=== PATIENT | female | born 1965 | race Caucasian/White ===

== ENCOUNTER 2022-07-16 23:53 | Emergency (ER) | payer BC, SELFPAY ==
[2022-07-17] VITALS (22 sets, daily range): BP systolic 65–150; BP diastolic 49–100; PULSE 71–98; RESP 12–16; TEMP 36.2; O2SAT 86–98
--- NOTE | 2022-07-17 00:16 | CRLHL7_ITS ---
For Patients: As a result of the Century Cures Act, medical imaging exams and procedure reports are released immediately into your electronic medical record. You may view this report before your referring provider. If you have questions, please contact your health care provider. INDICATION: Severe abdominal pain. History of colectomy. TECHNIQUE: CT abdomen and pelvis acquired with 79 cc Isovue 370 IV contrast. COMPARISON: CT abdomen 03/16/2020. FINDINGS: Lower chest: Mild bilateral lower lobe atelectasis. Liver: Unremarkable. Normal in size and attenuation. No suspicious masses. Gallbladder and bile ducts: Cholelithiasis. No mural thickening. Pancreas: Unremarkable. No mass or inflammation. Spleen: Unremarkable. Normal in size. No masses. Adrenal glands: Unremarkable. No nodules. Kidneys: Partial right nephrectomy. Normal left kidney. No stone, suspicious mass, or hydronephrosis. GI tract: Postsurgical changes of total colectomy with right lower quadrant ostomy. Multiple dilated loops of fluid-filled small bowel throughout the abdomen with a transition point about surgical clips and chain suture in the lower pelvis (series 4, image 62). Vasculature: Abdominal aorta is normal in caliber. Mesenteric arteries are patent. Lymph nodes: No lymphadenopathy. Peritoneum/Abdominal Wall: No free air or significant free fluid. Pelvis: Unremarkable. Bones: Unremarkable for age. IMPRESSION: Small-bowel obstruction with transition point in the lower pelvis adjacent to chain suture and surgical clips from prior total colectomy. Partial right nephrectomy. Cholelithiasis without evidence of cholecystitis. Please note that all CT scans at this facility use dose modulation, iterative reconstruction, and/or weight-based dosing when appropriate to reduce radiation dose to as low as reasonably achievable. Dictated by Efrem Mcgarry MD @ 07/17/2022 1:58:10 AM (Electronically Signed)
[2022-07-17] MEDS: ONDANSETRON 2 MG/ML inj 4 MG IVP (00:25)
[2022-07-17] MEDS: fentaNYL 100 MCG/2 ML inj 50 MCG IVP (00:25)
[2022-07-17] MEDS: 0.9 % SODIUM CHLORIDE 1000 ml 1,000 ML IV ×2 (00:26→00:54)
[2022-07-17 00:35] LABS: Basophils Percent Auto 0.4 % (0.0-3.0); Eosinophils Percent Auto 0.6 % (0.0-7.0); Hematocrit 44.4 % (33.0-51.0); Hemoglobin* 14.4 gm/dL (12.0-16.0); Immature Granulocytes Pct Auto 0.2 %; Lymphocytes Percent Auto 16.2 % (20-44); Mean Corpuscular HGB Conc 32 gm/dL (32-36); Mean Corpuscular Hemoglobin 29 pg (26-34); Mean Corpuscular Volume 89 fL (80-100); Monocytes Percent Auto 7.1 % (0.0-11.0); Neutrophils Percent Auto 75.5 % (42.0-72.0); Platelet Count* 282 K/uL (140-440); RDW Coefficient of Variation % 13.4 % (11.5-15.5); Red Blood Count 5.01 m/uL (4.00-5.20); White Blood Count* 13.98 K/uL (4.50-11.00)
[2022-07-17 00:36] LABS: Lactate Sepsis w/Reflex* 1.5 mmol/L (0.5-1.9); Slide Review Reflex No
[2022-07-17 00:43] LABS: Albumin* 4.7 g/dL (3.3-5.0); Chloride* 107 mmol/L (96-114)
[2022-07-17 00:44] LABS: Potassium* 3.8 mmol/L (3.6-5.1); Sodium* 139 mmol/L (135-149)
[2022-07-17 00:46] LABS: Creatinine* 0.9 mg/dL (0.5-1.5); Estimated Glomerular Filt Rate 75 ml/min
[2022-07-17 00:47] LABS: Alanine Aminotransferase* 31 U/L (4-35); Alkaline Phosphatase* 111 U/L (40-150); Aspartate Amino Transferase* 32 U/L (12-35); Bilirubin Direct* 0.1 mg/dL (0.0-0.5); Blood Urea Nitrogen* 24 mg/dL (7-30); Calcium* 9.6 mg/dL (8.4-10.6); Carbon Dioxide* 20 mmol/L (20-32); Glucose* 137 mg/dL (60-115); Lipase* 129 U/L (23-300)
--- NOTE | 2022-07-17 00:50 | ED.ABDPAIN ---
HPI - Abdominal Pain General Chief Complaint: Abdominal Pain Stated Complaint: Abdominal Pain Time Seen by Provider: 07/17/22 00:16 History of Present Illness HPI narrative: 56-year-old woman presenting to the emergency department accompanied by her with complaint of sudden onset of abdominal pain about 2 hours prior to arrival. Has a history of full colectomy for Crohn's; a J-pouch apparently was attempted but this failed after adhering to the pelvis. She has had an ileostomy known place for about 20 years following the surgery. They have had fiber 6 episodes of bowel obstruction to some degree over the years. Did have some bowel output last about 5 hours ago. It was a small amount. Has not had any fever. She did vomit a couple of times. Arrives in significant distress. Related Data Home Medications Medication Instructions Recorded Confirmed fluticasone propionate 50 intranasal 07/17/22 mcg/actuation nasal spray,suspension levothyroxine 75 mcg tablet mcg 07/17/22 Allergies Allergy/AdvReac Type Severity Reaction Status Date / Time No Known Drug Allergies Allergy Verified 07/17/22 00:21 Review of Systems Status of ROS Reports: 10 or more systems reviewed and unremarkable except as noted in History and below [facility] Social History Smoking Status: Unknown if ever smoked Exam Narrative: Exam Narrative: Diaphoretic and pale initial exam. Mouth is sticky. Abdomen diffusely tense and tender. Bowel sounds are present. Small output in the stoma bag. Initial blood pressure is noted to be rather low. Rebounds though fairly quickly. Skin is without evidence of rash. Lungs appear to be clear though she is splinting a little bit in pain. Cardiovascular with regular rate and rhythm. Bringing her knees up somewhat in apparent discomfort. No peripheral edema. Const: Vital Signs, click to edit/add: Vital Signs - 24 hr 07/17/22 00:18 07/17/22 00:30 07/17/22 00:30 Temperature 97.1 F L Pulse Rate Pulse Rate [Left P ulse Oximeter] 71 81 Respiratory Rate 16 12 Blood Pressure Blood Pressure [Le ft Upper Arm] 65/49 L 132/81 Pulse Oximetry 98 86 L 86 L Oxygen Delivery Me thod Room Air Room Air Room Air Oxygen Flow Rate 2 07/17/22 01:00 07/17/22 02:11 07/17/22 02:15 Temperature Pulse Rate 97 89 Pulse Rate [Left P ulse Oximeter] 75 Respiratory Rate 14 Blood Pressure Blood Pressure [Le ft Upper Arm] 132/81 Pulse Oximetry 95 93 90 Oxygen Delivery Me thod Nasal Cannula Nasal Cannula Oxygen Flow Rate 2 2 07/17/22 02:30 07/17/22 02:31 07/17/22 02:45 Temperature Pulse Rate 87 85 85 Pulse Rate [Left P ulse Oximeter] Respiratory Rate Blood Pressure 126/90 H Blood Pressure [Le ft Upper Arm] Pulse Oximetry 96 96 97 Oxygen Delivery Me thod Room Air Oxygen Flow Rate 07/17/22 03:00 07/17/22 03:02 07/17/22 03:15 Temperature Pulse Rate 91 89 90 Pulse Rate [Left P ulse Oximeter] Respiratory Rate Blood Pressure 137/100 H Blood Pressure [Le ft Upper Arm] Pulse Oximetry 95 95 96 Oxygen Delivery Me thod Oxygen Flow Rate 07/17/22 01:27 07/17/22 03:30 07/17/22 03:31 Temperature Pulse Rate 89 90 Pulse Rate [Left P ulse Oximeter] Respiratory Rate Blood Pressure 150/92 H Blood Pressure [Le ft Upper Arm] Pulse Oximetry 96 92 90 Oxygen Delivery Me thod Room Air Oxygen Flow Rate 07/17/22 03:45 07/17/22 04:00 07/17/22 04:01 Temperature Pulse Rate 98 86 Pulse Rate [Left P ulse Oximeter] Respiratory Rate Blood Pressure 138/94 H Blood Pressure [Le ft Upper Arm] Pulse Oximetry 96 97 Oxygen Delivery Me thod Oxygen Flow Rate 07/17/22 04:15 07/17/22 04:30 07/17/22 04:34 Temperature Pulse Rate 84 85 82 Pulse Rate [Left P ulse Oximeter] Respiratory Rate Blood Pressure Blood Pressure [Le ft Upper Arm] Pulse Oximetry 90 90 89 Oxygen Delivery Me thod Nasal Cannula Oxygen Flow Rate 1 07/17/22 04:45 07/17/22 05:30 Temperature Pulse Rate 80 85 Pulse Rate [Left P ulse Oximeter] Respiratory Rate Blood Pressure Blood Pressure [Le ft Upper Arm] Pulse Oximetry 97 95 Oxygen Delivery Me thod Room Air Oxygen Flow Rate Documenting provider has reviewed patient's vital signs: yes Course Vital Signs Vital signs: Initial Vital Signs Temperature 97.1 F L 07/17/22 00:18 Temperature Source Temporal Artery Scan 07/17/22 00:18 Pulse Rate 71 07/17/22 00:18 Respiratory Rate 16 07/17/22 00:18 Blood Pressure 65/49 L 07/17/22 00:18 Blood Pressure Mean 54 07/17/22 00:18 Blood Pressure Position Sitting 07/17/22 00:18 Pulse Oximetry 98 07/17/22 00:18 Oxygen Delivery Method 07/17/22 00:18 Vital Signs Temperature 97.1 F L 07/17/22 00:18 Pulse Rate 71 07/17/22 00:18 Respiratory Rate 16 07/17/22 00:18 Blood Pressure 65/49 L 07/17/22 00:18 Pulse Oximetry 98 07/17/22 00:18 Oxygen Delivery Method 07/17/22 00:18 Temperature 97.1 F L 07/17/22 00:18 Pulse Rate 85 07/17/22 05:30 Respiratory Rate 14 07/17/22 01:00 Blood Pressure 138/94 H 07/17/22 04:01 Pulse Oximetry 95 07/17/22 05:30 Oxygen Delivery Method 07/17/22 04:45 Oxygen Flow Rate 1 07/17/22 04:34 MDM - Abdominal Pain MDM Narrative Medical decision making narrative: Sepsis of initial concern. I would suspect small-bowel obstruction given history. Sounds as though there is rather small opening at prior anastomotic site and at stomal output that has cause trouble before. She has had ballooning procedure as well. Was initiated on fluid resuscitation. Vital stabilized. White count was mildly elevated. Some of this might be stress margination. Lactate reassuring. Did review CT imaging of abdomen and pelvis-IV contrast. Radiology over-read as below IMPRESSION: Small-bowel obstruction with transition point in the lower pelvis adjacent to chain suture and surgical clips from prior total colectomy. Partial right nephrectomy. Cholelithiasis without evidence of cholecystitis. Discussed these findings with our on-call surgeon who understandably was concerned about admitting to this facility without next levels of care available and potential complicated surgery if necessary. History for Ms. Sheffield is that tends to resolve with some bowel rest and fluids. Did require multiple doses of fentanyl and then Dilaudid. Following repeat consultation with our surgeon pain had markedly decreased, we monitored for a longer period of time, and had begun to have stool output again. She was no longer vomiting in the emergency department. Was requesting departure home. Urinalysis was concentrated and would seem to indicate presence of infection but without urinary tract symptoms I would wait for culture results and follow up with phone call for symptoms before treating. Medical Records Attestation: I reviewed the patient's medical records. Lab Data Attestation: I reviewed the patient's lab results. Labs: Lab Results 07/17/22 07/17/22 07/17/22 Range/Units 00:19 00:25 00:25 WBC 13.98 H (4.50-11.00) K/uL RBC 5.01 (4.00-5.20) m/uL Hgb 14.4 (12.0-16.0) gm/dL Hct 44.4 (33.0-51.0) % MCV 89 (80-100) fL MCH 29 (26-34) pg MCHC 32 (32-36) gm/dL RDW Coeff of Elvis 13.4 (11.5-15.5) % Plt Count 282 (140-440) K/uL Neut % (Auto) 75.5 H (42.0-72.0) % Lymph % (Auto) 16.2 L (20-44) % [place] % (Auto) 7.1 (0.0-11.0) % Eos % (Auto) 0.6 (0.0-7.0) % Baso % (Auto) 0.4 (0.0-3.0) % Neut # (Auto) 10.60 H (1.7-7.0) K/uL Lymph # (Auto) 2.30 (0.90-2.90) K/uL [place] # (Auto) 1.00 H (0.00-0.90) K/UL Eos # (Auto) 0.10 (0.00-0.50) K/uL Baso # (Auto) 0.10 (0.00-0.30) K/uL Sodium 139 (135-149) mmol/L Potassium 3.8 (3.6-5.1) mmol/L Chloride 107 (96-114) mmol/L Carbon Dioxide 20 (20-32) mmol/L BUN 24 (7-30) mg/dL Creatinine 0.9 (0.5-1.5) mg/dL Estimated GFR 75 ml/min Glucose 137 H (60-115) mg/dL Venous Lactic Acid (Serial Order) Calcium 9.6 (8.4-10.6) mg/dL Total Bilirubin 1.0 (0.1-1.5) mg/dL Direct Bilirubin 0.1 (0.0-0.5) mg/dL AST 32 (12-35) U/L ALT 31 (4-35) U/L Alkaline Phosphatase 111 (40-150) U/L C-Reactive Protein < 0.5 L (0.5-1.0) mg/dL Total Protein 8.0 (6.0-8.3) g/dL Albumin 4.7 (3.3-5.0) g/dL Lipase 129 (23-300) U/L Urine Color Yellow (Yellow) Urine Appearance Cloudy A (Clear) Urine pH 5.0 (5.0-8.5) Ur Specific [place] >= 1.030 (1.000-1.030) Urine Protein 3+ A (Negative) Urine Glucose (UA) Negative (Negative) Urine Ketones Negative (Negative) Urine Blood Trace-intact A (Negative) Urine Nitrite Negative (Negative) Urine Bilirubin Negative (Negative) Urine Urobilinogen 0.2 (0.2-1.0) Ur Leukocyte Esterase 1+ A (Negative) Urine RBC 5-10 A (0-2) Urine WBC 10-25 A (0-5) Ur Squamous Epith Cells Few (None-Few) Urine Bacteria Few A (None) SARS-CoV-2 (PCR) (Negative) 07/17/22 07/17/22 Range/Units 00:25 00:50 WBC (4.50-11.00) K/uL RBC (4.00-5.20) m/uL Hgb (12.0-16.0) gm/dL Hct (33.0-51.0) % MCV (80-100) fL MCH (26-34) pg MCHC (32-36) gm/dL RDW Coeff of Elvis (11.5-15.5) % Plt Count (140-440) K/uL Neut % (Auto) (42.0-72.0) % Lymph % (Auto) (20-44) % [place] % (Auto) (0.0-11.0) % Eos % (Auto) (0.0-7.0) % Baso % (Auto) (0.0-3.0) % Neut # (Auto) (1.7-7.0) K/uL Lymph # (Auto) (0.90-2.90) K/uL [place] # (Auto) (0.00-0.90) K/UL Eos # (Auto) (0.00-0.50) K/uL Baso # (Auto) (0.00-0.30) K/uL Sodium (135-149) mmol/L Potassium (3.6-5.1) mmol/L Chloride (96-114) mmol/L Carbon Dioxide (20-32) mmol/L BUN (7-30) mg/dL Creatinine (0.5-1.5) mg/dL Estimated GFR ml/min Glucose (60-115) mg/dL Venous Lactic Acid (Serial Order) Calcium (8.4-10.6) mg/dL Total Bilirubin (0.1-1.5) mg/dL Direct Bilirubin (0.0-0.5) mg/dL AST (12-35) U/L ALT (4-35) U/L Alkaline Phosphatase (40-150) U/L C-Reactive Protein (0.5-1.0) mg/dL Total Protein (6.0-8.3) g/dL Albumin (3.3-5.0) g/dL Lipase (23-300) U/L Urine Color (Yellow) Urine Appearance (Clear) Urine pH (5.0-8.5) Ur Specific [place] (1.000-1.030) Urine Protein (Negative) Urine Glucose (UA) (Negative) Urine Ketones (Negative) Urine Blood (Negative) Urine Nitrite (Negative) Urine Bilirubin (Negative) Urine Urobilinogen (0.2-1.0) Ur Leukocyte Esterase (Negative) Urine RBC (0-2) Urine WBC (0-5) Ur Squamous Epith Cells (None-Few) Urine Bacteria (None) SARS-CoV-2 (PCR) Negative SARS-CoV-2 (Negative) ECG Data Attestation: I personally reviewed and interpreted this ECG as follows: (Normal sinus rhythm. rate of 82. QTC of 497) Discharge Plan Discharge Clinical Impression: Small bowel obstruction, Abdominal pain, Dehydration Patient Disposition: Home w/ Parent or Adult Condition: Improved Additional Instructions: Focus on hydration. For today clear liquids. Diluted juices and soup broths; then over 36 hours advancing to thicker soups and smoothies. Rice. [place]. Sounds like it is time to follow-up with your surgeon and maybe block breaker operator. Return as needed. Cosmo and Gerri from [facility]. Prescriptions: No Action levothyroxine 75 mcg tablet Label Comments: TAKE 1 TABLET BY MOUTH ONCE DAILY. fluticasone propionate 50 mcg/actuation spray,suspension INTRANASAL Label Comments: INHALE 2 SPRAYS INTO AFFECTED NOSTRIL(S) ONCE DAILY. Follow Up/Referrals: Taylor Pal MD [Primary Care Provider] - Stand Alone Forms: [facility] Info Instructions
[2022-07-17] MEDS: fentaNYL 100 MCG/2 ML inj 25 MCG IVP (00:53)
[2022-07-17 00:56] LABS: C Reactive Protein* < 0.5 mg/dL (0.5-1.0)
[2022-07-17] MEDS: HYOSCYAMINE SULFATE 0.125 MG TAB 0.25 MG SUBLINGUAL (01:30)
[2022-07-17] MEDS: HYDROmorphone 0.5 mg/0.5 ml inj 1 MG IVP (02:10)
--- NOTE | 2022-07-17 03:30 | ED.NURSE ---
Last oral intake: 07/16/22 at 1300 - sandwich
--- NOTE | 2022-07-17 03:55 | ED.NURSE ---
Pt up to bathroom via w/c. Pt reports she passed large amount of watery stool for first time since here in ER. Pt stating pain is relieved, from 10/10 to 0/10. Pt also states she is finally able to rest. Pt's states that pt has had frequent similar episodes in past, and patient needs to get over the part where she can finally relax and then once she can go to the bathroom again, she has watery stools for three days and then she is back to normal. updated.
[2022-07-17 04:55] LABS: Appearance Urine Cloudy (Clear); Bilirubin Urine Negative (Negative); Color Urine Yellow (Yellow); Glucose Urine Negative (Negative)
[2022-07-17 04:56] LABS: Blood Urine Trace-intact (Negative); Ketones Urine Negative (Negative); Nitrite Urine Negative (Negative); Protein Urine 3+ (Negative); Specific Gravity Urine >= 1.030 (1.000-1.030); Urobilinogen Urine 0.2 (0.2-1.0)
[2022-07-17 04:57] LABS: Bacteria Urine Few; Leukocyte Esterase Urine 1+ (Negative); Squamous Epithelial Cell Urine Few (None-Few)
[2022-07-17 05:26] LABS: SARS PCR* Negative SARS-CoV-2 (Negative)
== END 2022-07-17 06:05 | disposition home or self-care (01) ==
PROVIDERS: Emergency Provider Family Medicine; PCP Family Medicine
DX: K56.690 Other partial intestinal obstruction (principal)
CPT/HCPCS: 36415; 74177; 80048; 80076; 81001; 83690; 85025; 86140; 87040; 87086; 87635; 96374; 96375; 96376; 99284; 99285; A9270; J1170; J2405; J3010; J7030; Q9967

== ENCOUNTER 2023-07-26 15:09 | Inpatient (IN) | payer BC, SELFPAY ==
[2023-07-26] VITALS (12 sets, daily range): BP systolic 81–119; BP diastolic 58–89; PULSE 71–93; RESP 16–18; TEMP 36.4–36.8; O2SAT 92–96; BMI 27.0
--- NOTE | 2023-07-26 15:41 | ED.GENADULT ---
HPI - General Adult General Date Seen: 07/26/23 Chief complaint: Diarrhea Stated complaint: Abdominal pain, low BP Time Seen by Provider: 07/26/23 15:29 History of Present Illness HPI narrative: 57-year-old female with a past medical history of Crohn's disease status post total colectomy with ileostomy done about 20 years ago. She follows with [facility] and has not had any active Crohn's for a while so she is not currently on any immunosuppressive medications. She has been sick for the past 2 days with a GI illness. She has had a bit of nausea but no vomiting. She has had profound watery output and diarrhea through her ileostomy. No blood or mucus. She notes that her son is home from college and he has been sick with a GI bug that her was also sick with a much more mild GI illness yesterday but he is no better. As is typically the case, she is affected by GI illnesses much more severely than her family members. No other recent antibiotics. No recent travel. No other suspicious food intake per She has not had any fever or chills. No chest pain or shortness of breath. She has been getting progressively weaker and run down because of a diarrhea and dehydration. She is developing cramps in her legs and has had difficulty walking. Her blood pressure is normally in the 130s systolic at home but today when she was measuring at it was 88/50. She is getting lightheaded from dehydration. She did take 1 Imodium this morning and has had somewhat less diarrhea output since then but still much more liquid output than normal. She has to be careful with Imodium because it has triggered obstructions for her in the past. Related Data Home Medications Medication Instructions Recorded Confirmed fluticasone propionate 50 intranasal 07/17/22 mcg/actuation nasal spray,suspension levothyroxine 75 mcg tablet mcg 07/17/22 gabapentin 300 mg capsule 300 mg PO DAILY 07/26/23 07/26/23 hydroxyzine HCl 25 mg tablet 25 mg PO Q6H PRN itch 07/26/23 07/26/23 Allergies Allergy/AdvReac Type Severity Reaction Status Date / Time No Known Drug Allergies Allergy Verified 07/17/22 00:21 PFSH PFSH Social History Smoking Status: Unknown if ever smoked How often do you have a drink containing alcohol: 2-3 times a week How many standard drinks containing alcohol do you have on a typical day: 1 or 2 How often do you have six or more drinks on one occasion: Never AUDIT-C Alcohol total score: 3 Non-prescribed substance use: denies use Exam Narrative: Exam Narrative: Constitutional: Appears well-developed and well-nourished. Alert. Conversant. Appears tired but overall not acutely toxic HENT: Head: Atraumatic. Nose: Nose normal. Mouth/Throat: Oral mucosa is clear dry and tongue is quite dry.. no trismus. Pharynx normal. Tonsils symmetric. No tonsillar enlargement, erythema, or exudate. Eyes: Conjunctivae normal. EOM normal. Pupils equal, round, and reactive to light. No scleral icterus. Neck: Normal range of motion. Neck supple. No tracheal deviation present. Cardiovascular: Normal rate, regular rhythm. No gallop. No friction rub. No murmur heard. Symmetric radial artery pulses Pulmonary/Chest: Effort normal. No stridor. No respiratory distress. No wheezes. No rales. No rhonchi . No tenderness. Abdominal: Soft. Bowel sounds normal. No distension. No mass. Mild diffuse tenderness. No rebound. No guarding. Overall, not peritoneal. Ostomy bag in right lower quadrant does have liquid stool in it. No solid stool. Musculoskeletal: RUE: Normal range of motion. No tenderness. No deformity LUE: Normal range of motion. No tenderness. No deformity RLE: Normal range of motion. No edema. No tenderness. No deformity LLE: Normal range of motion. No edema. No tenderness. No deformity Neurological: Alert and oriented to person, place, and time. Normal strength. CN II-VII intact. No sensory deficit. GCS eye subscore is 4. GCS verbal subscore is 5. GCS motor subscore is 6. Normal coordination Skin: Skin is warm and dry. No rash noted. No pallor. Normal capillary refill. Psychiatric: Normal mood. Normal affect. Const: Vital Signs, click to edit/add: Vital Signs - 24 hr 07/26/23 15:19 07/26/23 15:43 07/26/23 15:47 Temperature 97.6 F Pulse Rate Pulse Rate [Right Pulse Oximeter] 93 Respiratory Rate 18 Blood Pressure 103/61 106/89 Blood Pressure [Ri ght Upper Arm] 81/58 L Pulse Oximetry 95 Oxygen Delivery Me thod Room Air 07/26/23 15:52 07/26/23 16:27 Temperature Pulse Rate 72 71 Pulse Rate [Right Pulse Oximeter] Respiratory Rate Blood Pressure Blood Pressure [Ri ght Upper Arm] Pulse Oximetry 92 95 Oxygen Delivery Me thod Course Course ED Course: Recheck-now moved to room 5 for privacy. Blood pressure improved. Feeling better. Cramps are now resolved. nearing completion of 1 L of IV saline. Vital Signs Vital signs: Initial Vital Signs Temperature 97.6 F 07/26/23 15:19 Temperature Source Temporal Artery Scan 07/26/23 15:19 Pulse Rate 93 07/26/23 15:19 Respiratory Rate 18 07/26/23 15:19 Blood Pressure 81/58 L 07/26/23 15:19 Blood Pressure Mean 65 L 07/26/23 15:19 Blood Pressure Position Sitting 07/26/23 15:19 Pulse Oximetry 95 07/26/23 15:19 Oxygen Delivery Method Room Air 07/26/23 15:19 Vital Signs Temperature 97.6 F 07/26/23 15:19 Pulse Rate 93 07/26/23 15:19 Respiratory Rate 18 07/26/23 15:19 Blood Pressure 81/58 L 07/26/23 15:19 Pulse Oximetry 95 07/26/23 15:19 Oxygen Delivery Method Room Air 07/26/23 15:19 Temperature 97.6 F 07/26/23 15:19 Pulse Rate 71 07/26/23 16:27 Respiratory Rate 18 07/26/23 15:19 Blood Pressure 106/89 07/26/23 15:47 Pulse Oximetry 95 07/26/23 16:27 Oxygen Delivery Method Room Air 07/26/23 15:19 Medications Administered Medications: Discontinued Medications Generic Name Dose Route Start Last Admin Trade Name Freq PRN Reason Stop Dose Admin Sodium Chloride 1,000 mls @ 1,000 mls/hr 07/26/23 15:45 07/26/23 15:53 0.9 % Sodium Chloride 1000 Ml IV 07/26/23 16:44 1,000 mls/hr .Q1H VICKY Administration Loperamide HCl 2 mg 07/26/23 15:39 07/26/23 16:02 Loperamide Hcl 2 Mg Capsule PO 07/26/23 15:40 2 mg ONCE ONE Administration Ondansetron HCl 4 mg 07/26/23 15:39 07/26/23 16:02 Ondansetron 2 Mg/Ml Inj IVP 07/26/23 15:40 4 mg ONCE ONE Administration Medical Decision Making MDM Narrative Medical decision making narrative: This patient presents with 2 day history of profuse watery diarrhea. The patient's symptoms and exam could be consistent with a viral GI infection. Her son and have been sick with a self limited GI illness as well. We suspect this is probably a viral illness. There is no high fever, severe pain, bilious or bloody emesis, blood or mucous in the stool, severe abdominal pain, or other concerning signs for a bacterial infection. No recent travel or high risk exposure for baceraial pathogen. At this point I do not think she needs CT imaging. No high-risk features to suggest C diff or bacterial enteritis so would hold off on stool cultures for now. No recent antibiotics or risk factors for C. diff. I don't see any evidence for appendicitis, bowel obstruction, abscess, bowel perforation, or other surgical emergency. She does have history of total colectomy for Crohn's with ileostomy. She chronically has a lot of watery stool output which is significantly worsened because of her illness. She does appear to be dehydrated at that as evidence clinically and by low blood pressure at home. After IV fluids blood pressure is normalized and her cramps and weakness are somewhat improved. Labs show evidence for an acute kidney injury with a BUN in the 50s and creatinine of 3.3. Concerning for acute kidney injury. I suspect this is related to dehydration but patient would need admission for IV hydration overnight and recheck of kidney labs by morning to make sure that kidney function improves. Discussed with Cathryn Duffy, hospitalist, who accepts the patient to the medical floor at 4:45 p.m.. Patient and her are in agreement.. Lab Data Labs: Lab Results 07/26/23 Range/Units 15:45 WBC 7.48 (4.50-11.00) K/uL RBC 5.55 H (4.00-5.20) m/uL Hgb 16.3 H (12.0-16.0) gm/dL Hct 50.0 (33.0-51.0) % MCV 90 (80-100) fL MCH 29 (26-34) pg MCHC 33 (32-36) gm/dL RDW Coeff of Elvis 13.1 (11.5-15.5) % Plt Count 321 (140-440) K/uL Neut % (Auto) 84.1 H (42.0-72.0) % Lymph % (Auto) 9.1 L (20-44) % [place] % (Auto) 6.4 (0.0-11.0) % Eos % (Auto) 0.0 (0.0-7.0) % Baso % (Auto) 0.1 (0.0-3.0) % Neut # (Auto) 6.30 (1.7-7.0) K/uL Lymph # (Auto) 0.70 L (0.90-2.90) K/uL [place] # (Auto) 0.50 (0.00-0.90) K/UL Eos # (Auto) 0.00 (0.00-0.50) K/uL Baso # (Auto) 0.01 (0.00-0.30) K/uL Abs Immat Gran (auto) 0.02 (0.00-0.30) K/uL Imm/Tot Granulo (auto) 0.3 % Sodium 131 L (135-149) mmol/L Potassium 5.0 (3.6-5.1) mmol/L Chloride 100 (96-114) mmol/L Carbon Dioxide 11 L (20-32) mmol/L Anion Gap 20 H (7-15) mEq/L BUN 54 H (7-30) mg/dL Creatinine 3.3 H (0.5-1.5) mg/dL Estimated Creat Clear 16.72 Estimated GFR 16 ml/min Glucose 125 H (60-115) mg/dL Lactate 1.0 (0.5-1.9) mmol/L Calcium 10.5 (8.4-10.6) mg/dL ECG Data Attestation: I personally reviewed and interpreted this ECG as follows: Interpretation: Normal sinus rhythm rate 64 Tall P wave in lead to suggest possible right atrial enlargement. CO 164 QRS axis normal axis. ST segment/T wave: No ST segment elevation or depression. QTc: 437. No U waves. Discharge Plan Discharge Clinical Impression: ISHAN (acute kidney injury), Acute hypotension, Acute dehydration, Diarrhea Patient Disposition: Admitted As Observation
[2023-07-26] MEDS: 0.9 % SODIUM CHLORIDE 1000 ml 1,000 ML IV (15:53)
[2023-07-26 16:02] LABS: Basophils Absolute Auto 0.01 K/uL (0.00-0.30); Basophils Percent Auto 0.1 % (0.0-3.0); Hemoglobin* 16.3 gm/dL (12.0-16.0); Immature Granulocytes Abs Auto 0.02 K/uL (0.00-0.30); Immature Granulocytes Pct Auto 0.3 %; Lymphocytes Percent Auto 9.1 % (20-44); Mean Corpuscular HGB Conc 33 gm/dL (32-36); Mean Corpuscular Hemoglobin 29 pg (26-34); Mean Corpuscular Volume 90 fL (80-100); Monocytes Percent Auto 6.4 % (0.0-11.0); Neutrophils Percent Auto 84.1 % (42.0-72.0); Platelet Count* 321 K/uL (140-440); RDW Coefficient of Variation % 13.1 % (11.5-15.5); Red Blood Count 5.55 m/uL (4.00-5.20); White Blood Count* 7.48 K/uL (4.50-11.00)
[2023-07-26] MEDS: LOPERAMIDE HCL 2 MG CAPSULE PO (16:02)
[2023-07-26] MEDS: ONDANSETRON 2 MG/ML inj 4 MG IVP (16:02)
[2023-07-26 16:14] LABS: Slide Review Reflex No
[2023-07-26 16:21] LABS: Chloride* 100 mmol/L (96-114); Sodium* 131 mmol/L (135-149)
[2023-07-26 16:23] LABS: Creatinine* 3.3 mg/dL (0.5-1.5)
[2023-07-26 16:24] LABS: Anion Gap 20 mEq/L (7-15); Blood Urea Nitrogen* 54 mg/dL (7-30); Carbon Dioxide* 11 mmol/L (20-32); Est. Creatinine Clearance* 16.72; Estimated Glomerular Filt Rate 16 ml/min; Glucose* 125 mg/dL (60-115)
[2023-07-26 16:25] LABS: Calcium* 10.5 mg/dL (8.4-10.6)
[2023-07-26 17:04] LABS: Appearance Urine Clear (Clear); Bilirubin Urine 1+ (Negative); Blood Urine Trace-intact (Negative); Color Urine Yellow (Yellow); Glucose Urine Negative (Negative); Ketones Urine Trace (Negative); Leukocyte Esterase Urine Trace (Negative); Nitrite Urine Negative (Negative); Protein Urine 3+ (Negative); Specific Gravity Urine >= 1.030 (1.000-1.030); Urobilinogen Urine 0.2 (0.2-1.0)
--- NOTE | 2023-07-26 17:07 | PM.IMHP1 ---
Hospitalist- H&P: HPI History of Present Illness Date Seen: 07/26/23 Chief complaint: Abdominal pain, low BP Narrative: Valeria Sheffield is a 57 year old female Crohn's disease, status post ileostomy 2005, previous J-pouch 2002, SBO, hypothyroidism, hypertension, remote history of renal failure is admitted to the medical floor from the ED for further management ISHAN in setting of diarrhea and dehydration. Patient reports onset of watery diarrhea Michelle evening. She was exposed to her son and both of whom had diarrhea as well-since resolved. She thought maybe her diarrhea was improving yesterday however it increased again last night after eating. At this point she reports it appears clear without evidence of blood. She has had some belly cramping. A few episodes of nausea without vomiting. No fevers. In general she has had muscle cramping of her legs and groin. Urine output was normal until this afternoon when she last urinated around 1:00 p.m.. Has had occasional dizziness without headaches. Denies fevers chills or sweats. Denies chest pain or shortness of breath. Nonsmoker. Rare alcohol use. Review of Systems Narrative: REVIEW OF SYSTEMS: Complete review of systems performed and negative unless otherwise stated in HPI or below. [facility] Medical History Small bowel obstruction ?K56.609 - Unspecified intestinal obstruction, unspecified as to partial versus complete obstruction (ICD-10) Crohn's disease, small and large intestine ?K50.80 - Crohn's disease of both small and large intestine without complications (ICD-10) [place] syndrome ?E80.4 - Gilbert syndrome (ICD-10) Hypothyroidism ?E03.9 - Hypothyroidism, unspecified (ICD-10) Hypertension ?I10 - Essential (primary) hypertension (ICD-10) Surgical History Hx of ileostomy ?Z98.890 - Other specified postprocedural states (ICD-10) Social History Smoking Status: Unknown if ever smoked How often do you have a drink containing alcohol: 2-3 times a week How many standard drinks containing alcohol do you have on a typical day: 1 or 2 How often do you have six or more drinks on one occasion: Never AUDIT-C Alcohol total score: 3 Non-prescribed substance use: denies use Meds Home Medications and Allergies Home Medications Medication Instructions Recorded Confirmed Type fluticasone propionate 50 2 spray intranasal DAILY PRN 07/17/22 07/26/23 History mcg/actuation nasal spray,suspension levothyroxine 75 mcg tablet 75 mcg PO DAILY 07/17/22 07/26/23 History cholecalciferol (vitamin D3) 25 25 mcg PO DAILY 07/26/23 07/26/23 History mcg (1,000 unit) capsule cyanocobalamin (vitamin B-12) 1,000 mcg PO DAILY 07/26/23 07/26/23 History 1,000 mcg tablet gabapentin 300 mg capsule 300 mg PO HS 07/26/23 07/26/23 History hydroxyzine HCl 25 mg tablet 25 mg PO Q6H PRN itch 07/26/23 07/26/23 History melatonin 3 mg tablet 3 mg PO HS PRN 07/26/23 07/26/23 History multivitamin 1 tab PO DAILY 07/26/23 07/26/23 History valsartan 40 mg tablet 40 mg PO HS 07/26/23 07/26/23 History Allergies Allergy/AdvReac Type Severity Reaction Status Date / Time No Known Drug Allergies Allergy Verified 07/17/22 00:21 Exam Narrative: Exam Narrative: PHYSICAL EXAM General: Pleasant, conversant, NAD HEENT: Normocephalic, atraumatic, sclera white, EOMI, oral mucosa moist Cardiovascular: RRR, S1S2. No pitting edema Pulmonary: CTA bilaterally without rhonchi, rales, expiratory wheezes. No dyspnea Abdominal: Soft, nondistended, mild generalized tenderness. Ileostomy bag in place without surrounding erythema. Neurological: Alert, answering questions appropriately, cranial nerves intact, no focal findings Extremities: No gross joint deformity or swelling. AROMI. Neurovascularly intact Skin: Warm, dry. Const: Vital Signs, click to edit/add: Vital Signs - 24 hr 07/26/23 15:19 07/26/23 15:43 07/26/23 15:47 Temperature 97.6 F Pulse Rate Pulse Rate [Right Pulse Oximeter] 93 Respiratory Rate 18 Blood Pressure 103/61 106/89 Blood Pressure [Ri ght Upper Arm] 81/58 L Pulse Oximetry 95 Oxygen Delivery Me thod Room Air 07/26/23 15:52 07/26/23 16:27 Temperature Pulse Rate 72 71 Pulse Rate [Right Pulse Oximeter] Respiratory Rate Blood Pressure Blood Pressure [Ri ght Upper Arm] Pulse Oximetry 92 95 Oxygen Delivery Me thod Hospitalist - H&P: Result Labs Labs: Short CBC 07/26/23 Range/Units 15:45 WBC 7.48 (4.50-11.00) K/uL Hgb 16.3 H (12.0-16.0) gm/dL Hct 50.0 (33.0-51.0) % Plt Count 321 (140-440) K/uL BMP 07/26/23 15:45 Sodium 131 L Potassium 5.0 Chloride 100 Carbon Dioxide 11 L BUN 54 H Creatinine 3.3 H Glucose 125 H Calcium 10.5 Urine 07/26/23 Range/Units 16:52 Urine Color Yellow (Yellow) Urine Appearance Clear (Clear) Urine pH 5.0 (5.0-8.5) Ur Specific [place] >= 1.030 (1.000-1.030) Urine Protein 3+ A (Negative) Urine Glucose (UA) Negative (Negative) Assessment and Plan Assessment and plan (1) Diarrhea: Problem comment: -high output watery diarrhea ileostomy past 48 hours (Sunday evening) -following exposure to family members with same symptoms. Suspected to be viral in nature -afebrile, no leukocytosis, lactate 1.0 -will order GI pathogen, C difficile, magnesium, phosphorus -received 2 L IVF in ED, continue IVF hydration -clear liquid diet for now as tolerated -h/o SBO so will avoid loperamide for now Status: Acute (2) Acute dehydration: Problem comment: -in setting of acute diarrhea -BUN 54, CO2 11, sodium 131, hemoglobin 16.3 -continue IVF hydration, monitoring labs Status: Acute (3) ISHAN (acute kidney injury): Problem comment: -creatinine 3.3, BUN 54, CO2 11 -baseline creatinine < 1, most recent 0.88. Reports one kidney smaller than the other, unsure which one -in setting of dehydration, acute fluid loss. Has not urinated since 1300 pm. -received 2 L IVF in ED, continue with maintenance fluids. Recheck creatinine on admission and continue to trend -avoid nephrotoxic medications -Renal US ordered Status: Acute (4) Hyponatremia: Problem comment: -sodium 131, in setting of profuse watery diarrhea, volume loss -continue IV hydration, monitoring labs -potassium 5.0. Magnesium, phosphorus ordered Status: Acute (5) Acute hypotension: Problem comment: -in setting of profuse diarrhea, volume loss. Improving with IV fluid hydration. Continue to monitor. Hold valsartan Status: Acute (6) Hypertension: Problem comment: -acutely hypotensive, hold valsartan Status: Chronic (7) Crohn's disease, small and large intestine: Problem comment: -has been under control, avoiding trigger foods. Not currently on any medications -followed by [place] Status: Chronic (8) Hx of ileostomy: Problem comment: -2005, following failure of J Pouch 2002, [facility] Status: Acute (9) Hypothyroidism: Problem comment: -continue levothyroxine Status: Chronic Plan CODE: Full VTE PPX: Enoxaparin Disposition: Observation
--- NOTE | 2023-07-26 17:52 | CRLHL7_ITS ---
For Patients: As a result of the Cures Act, medical imaging exams and procedure reports are released immediately into your electronic medical record. You may view this report before your referring provider. If you have questions, please contact your health care provider. INDICATION: Acute kidney injury. Dehydration. Decreased urine output. Status post partial right nephrectomy. TECHNIQUE: Ultrasound renal bilateral. Ibarra-scale and color Doppler sonographic images were acquired of the kidneys and urinary bladder. COMPARISON: CT abdomen and pelvis 07/17/2022. FINDINGS: Right kidney: 11.7 cm in length. Right renal contour irregularity and prominence of the right renal pelvis is similar in appearance. No progressive hydronephrosis. Left kidney: 13 cm in length. Left kidney is within normal limits. No hydronephrosis. Bladder: Not well-demonstrated/decompressed at this exam. No free fluid evident. IMPRESSION: 1. No left hydronephrosis. 2. Stable appearance of the right kidney most consistent with sequela of partial nephrectomy. No progressive right hydronephrosis. Dictated by Osvaldo Pineda MD @ 07/26/2023 7:40:34 PM Dictated by: Osvaldo Pineda MD @ 07/26/2023 19:40:42 (Electronically Signed)
[2023-07-26] MEDS: 0.9 % SODIUM CHLORIDE 1000 ml 1,000 ML 125 ML IV (17:54)
[2023-07-26 19:01] LABS: RBC Urine 0-2 (0-2); Squamous Epithelial Cell Urine Moderate (None-Few)
[2023-07-26 19:02] LABS: Bacteria Urine Few
[2023-07-26 19:38] LABS: Creatinine* 2.6 mg/dL (0.5-1.5); Est. Creatinine Clearance* 21.22; Estimated Glomerular Filt Rate 21 ml/min; Magnesium* 2.2 mg/dL (1.5-2.6)
--- NOTE | 2023-07-26 19:39 | PC.NURSE ---
Pt admitted to [facility] [place] from ED at 1710 this evening. She has been denying pain when asked. Ostomy in place with 350 mL yellow/green liquid stool output noted. Urine and stool samples have been sent to lab for testing per orders. Telemetry started per order- pt noted to be in NSR. VSS and pt has been afebrile since arrival to [facility] [place]. Pt able to transfer independently though staff have been present to help maneuver IV pole. IV in place to L forearm with NS running per current order in place. Pt denying N/V when asked. CL diet ordered with ice water provided. Pt declining other clear liquids when offered. She has been continent of bladder since arrival to unit. Pt lives in a home with Ronak who she has appointed as caregiver while in hospital. Pt states she has a health care directive at home. Concreter encouraged family to bring directive in so that copy can be obtained to have on file. SCDs in place to BLEs.
[2023-07-26 19:42] LABS: C.Difficile Negative (Negative); CDIFFEPI 027 PRESUMPTIVE NEGATIVE (Negative)
[2023-07-26 19:46] LABS: Phosphorus* 7.9 mg/dL (2.5-4.5)
[2023-07-26] MEDS: GABAPENTIN 300 MG CAPSULE PO (20:44)
[2023-07-26] MEDS: ENOXAPARIN 40 MG/0.4 ML INJ SUBCUT (20:44)
[2023-07-26] MEDS: hydrOXYzine pamoate 25 MG CAPSULE PO (20:44)
[2023-07-27] VITALS (7 sets, daily range): BP systolic 98–122; BP diastolic 62–75; PULSE 65–74; RESP 16–18; TEMP 36.6–37.1; O2SAT 93–97
[2023-07-27] MEDS: 0.9 % SODIUM CHLORIDE 1000 ml 1,000 ML 125 ML IV ×3 (01:46→16:40)
[2023-07-27] MEDS: LEVOTHYROXINE 75 MCG TABLET PO (06:15)
--- NOTE | 2023-07-27 06:45 | PC.NURSE ---
End of shift [id number]: A&O pleasant and cooperative. VSS w/ sats >90% on RA. Pt reports feeling ?a lot better? since coming in. Pt voiding adequate amounts. Pt is still producing a significant amount of green loose stool from ostomy. Denies any lightheaded or dizziness. Tolerating PO fluids and encouraged to continue to take in PO fluids. Denies n/v. SBA to the bathroom. Denies pain.
[2023-07-27 06:54] LABS: Chloride* 108 mmol/L (96-114); Potassium* 4.4 mmol/L (3.6-5.1); Sodium* 133 mmol/L (135-149)
[2023-07-27 06:57] LABS: Carbon Dioxide* 13 mmol/L (20-32); Creatinine* 1.8 mg/dL (0.5-1.5); Est. Creatinine Clearance* 30.66; Estimated Glomerular Filt Rate 32 ml/min
[2023-07-27 06:58] LABS: Anion Gap 12 mEq/L (7-15); Blood Urea Nitrogen* 50 mg/dL (7-30); Calcium* 8.8 mg/dL (8.4-10.6); Glucose* 87 mg/dL (60-115); Hematocrit 46.1 % (33.0-51.0); Hemoglobin* 14.7 gm/dL (12.0-16.0); Mean Corpuscular HGB Conc 32 gm/dL (32-36); Mean Corpuscular Hemoglobin 29 pg (26-34); Mean Corpuscular Volume 92 fL (80-100); Phosphorus* 5.7 mg/dL (2.5-4.5); Platelet Count* 289 K/uL (140-440); Red Blood Count 5.01 m/uL (4.00-5.20)
[2023-07-27 07:01] LABS: Slide Review Reflex No
--- NOTE | 2023-07-27 12:01 | NUTR.NU ---
Nutrition screen complete related to RN consult. Patient admitted with GI illness including diarrhea, acute kidney injury and dehydration. Patient has history of crohn's disease and ileostomy for the last 20 years. She is currently on clear liquids. She reports she has been tolerating this, however, she still feels gurgling in her stomach. Her weight is stable at 157.6#, height 65. Patient reports no nutrition needs at this time. RDN to continue to monitor diet advancement and tolerance. Follow up as needed.
--- NOTE | 2023-07-27 13:50 | PM.IMPN1 ---
Progress Note: A&P Assessment and plan (1) Diarrhea: Problem details: -high output watery diarrhea ileostomy past 48 hours (Sunday evening) -following exposure to family members with same symptoms. Suspected to be viral in nature -afebrile, no leukocytosis, lactate 1.0 -will order GI pathogen, C difficile, magnesium, phosphorus -received 2 L IVF in ED, continue IVF hydration -clear liquid diet for now and advance as tolerated -h/o SBO so will avoid loperamide for now - radiologist's read CT scan of abdomen and pelvis as being consistent with a small-bowel obstruction but clearly clinically she does not have a bowel obstruction and most likely these findings are related to an enteritis. Status: Acute (2) Acute dehydration: Problem details: -in setting of acute diarrhea -BUN 54, CO2 11, sodium 131, hemoglobin 16.3 -continue IVF hydration, monitoring labs - all labs are improving including creatinine, BUN, sodium, hemoglobin Status: Acute (3) ISHAN (acute kidney injury): Problem details: -creatinine 3.3, BUN 54, CO2 11 -baseline creatinine < 1, most recent 0.88. Reports one kidney smaller than the other, unsure which one -in setting of dehydration, acute fluid loss. Has not urinated since 1300 pm. -received 2 L IVF in ED, continue with maintenance fluids. Recheck creatinine on admission and continue to trend -avoid nephrotoxic medications -Renal US demonstrates no hydronephrosis or other abnormalities Status: Acute (4) Hyponatremia: Problem details: -sodium 131, in setting of profuse watery diarrhea, volume loss -continue IV hydration, monitoring labs -potassium 5.0. Magnesium, phosphorus ordered Status: Acute (5) Acute hypotension: Problem details: -in setting of profuse diarrhea, volume loss. Improving with IV fluid hydration. Continue to monitor. Hold valsartan Status: Acute (6) Hypertension: Problem details: -acutely hypotensive, hold valsartan Status: Chronic (7) Crohn's disease, small and large intestine: Problem details: -has been under control, avoiding trigger foods. Not currently on any medications -followed by [place] Status: Chronic (8) Hx of ileostomy: Problem details: -2005, following failure of J Pouch 2002, [facility] Status: Acute (9) Hypothyroidism: Problem details: -continue levothyroxine Status: Chronic Plan 1. Reviewed impression with patient and . 2. Into the questions 3. Continue with current efforts including IV fluids and advance diet as tolerated 4. Continue to monitor labs Time Spent With Patient Total time spent: 35 minutes Subjective Date Seen: 07/27/23 Interval history: History of present illness: ?Valeria Sheffield is a 57 year old female Crohn's disease, status post ileostomy 2005, previous J-pouch 2002, SBO, hypothyroidism, hypertension, remote history of renal failure is admitted to the medical floor from the ED for further management ISHAN in setting of diarrhea and dehydration. Patient reports onset of watery diarrhea Sunday evening. She was exposed to her son and both of whom had diarrhea as well-since resolved. She thought maybe her diarrhea was improving yesterday however it increased again last night after eating. At this point she reports it appears clear without evidence of blood. She has had some belly cramping. A few episodes of nausea without vomiting. No fevers. In general she has had muscle cramping of her legs and groin. Urine output was normal until this afternoon when she last urinated around 1:00 p.m.. Has had occasional dizziness without headaches. Denies fevers chills or sweats. Denies chest pain or shortness of breath. Nonsmoker. Rare alcohol use. Hospital day 2. Starting to feel a little better today. No longer has the profound orthostasis that she had yesterday. She states the color of her urine is now less dark than what it was before and she is urinating more. Still has episodes of loose stool but they are not as watery as they were previously. Is actually starting to feel hungry. Denies nausea, vomiting, abdominal pain. No fever, rigors, diaphoresis. Has had no melena or hematochezia. Has not had any hematemesis. had a similar illness and his condition is reportedly improving. Exam Narrative: Exam Narrative: Examined patient in her hospital room. Appears comfortable and in no acute distress. Vision and hearing are grossly normal. Alert and oriented to self, place, time, situation. Friendly, articulate, cooperative. Lungs are clear to auscultation. Heart tones with regular rhythm. Abdomen with hyperactive bowel sounds, soft. Nontender. No rebound. Independent transfer, station, and gait. No focal motor neurologic deficits. Const: Vital Signs, click to edit/add: Vital Signs - 24 hr 07/26/23 15:19 07/26/23 15:43 07/26/23 15:47 Temperature 97.6 F Pulse Rate Pulse Rate [Right Pulse Oximeter] 93 Respiratory Rate 18 Blood Pressure 103/61 106/89 Blood Pressure [Ri ght Arm] Blood Pressure [Ri ght Upper Arm] 81/58 L Pulse Oximetry 95 Oxygen Delivery Me thod Room Air 07/26/23 15:52 07/26/23 16:27 07/26/23 17:10 Temperature 97.7 F Pulse Rate 72 71 Pulse Rate [Right Pulse Oximeter] 72 Respiratory Rate 16 Blood Pressure Blood Pressure [Ri ght Arm] 119/74 Blood Pressure [Ri ght Upper Arm] Pulse Oximetry 92 95 96 Oxygen Delivery Me thod Room Air 07/26/23 17:21 07/26/23 17:21 07/26/23 17:25 Temperature 97.7 F Pulse Rate Pulse Rate [Right Pulse Oximeter] Respiratory Rate 16 16 16 Blood Pressure Blood Pressure [Ri ght Arm] 119/74 Blood Pressure [Ri ght Upper Arm] Pulse Oximetry 96 96 96 Oxygen Delivery Me thod Room Air Room Air Room Air 07/26/23 19:28 07/26/23 19:41 07/26/23 22:33 Temperature 98.0 F Pulse Rate 73 77 Pulse Rate [Right Pulse Oximeter] 77 Respiratory Rate 18 Blood Pressure Blood Pressure [Ri ght Arm] 107/74 Blood Pressure [Ri ght Upper Arm] Pulse Oximetry 95 Oxygen Delivery Me thod Room Air 07/26/23 22:50 07/27/23 03:00 07/27/23 09:12 Temperature 98.2 F 97.8 F Pulse Rate Pulse Rate [Right Pulse Oximeter] 79 70 73 Respiratory Rate 16 16 18 Blood Pressure Blood Pressure [Ri ght Arm] 107/71 98/70 99/70 Blood Pressure [Ri ght Upper Arm] Pulse Oximetry 96 95 97 Oxygen Delivery Me thod Room Air Room Air Room Air 07/27/23 11:00 Temperature 97.8 F Pulse Rate Pulse Rate [Right Pulse Oximeter] 68 Respiratory Rate 18 Blood Pressure Blood Pressure [Ri ght Arm] 111/66 Blood Pressure [Ri ght Upper Arm] Pulse Oximetry 93 Oxygen Delivery Me thod Room Air Labs Labs: Laboratory Results - last 24 hr 07/26/23 07/26/23 07/26/23 15:45 16:52 18:41 WBC 7.48 RBC 5.55 H Hgb 16.3 H Hct 50.0 MCV 90 MCH 29 MCHC 33 RDW Coeff of Elvis 13.1 Plt Count 321 Neut % (Auto) 84.1 H Lymph % (Auto) 9.1 L [place] % (Auto) 6.4 Eos % (Auto) 0.0 Baso % (Auto) 0.1 Neut # (Auto) 6.30 Lymph # (Auto) 0.70 L [place] # (Auto) 0.50 Eos # (Auto) 0.00 Baso # (Auto) 0.01 Abs Immat Gran (auto) 0.02 Imm/Tot Granulo (auto) 0.3 Sodium 131 L Potassium 5.0 Chloride 100 Carbon Dioxide 11 L Anion Gap 20 H BUN 54 H Creatinine 3.3 H Estimated Creat Clear 16.72 Estimated GFR 16 Glucose 125 H Lactate 1.0 Calcium 10.5 Phosphorus Magnesium Urine Color Yellow Urine Appearance Clear Urine pH 5.0 Ur Specific [place] >= 1.030 Urine Protein 3+ A Urine Glucose (UA) Negative Urine Ketones Trace A Urine Blood Trace-intact A Urine Nitrite Negative Urine Bilirubin 1+ A Urine Urobilinogen 0.2 Ur Leukocyte Esterase Trace A Urine RBC 0-2 Urine WBC 2-5 Ur Squamous Epith Cells Moderate A Urine Bacteria Few A Stl C. diff Tox B Gene Negative Stl C. diff [id number]-[id number] PRESUMPTIVE NEGATIVE 07/26/23 07/27/23 19:13 06:12 WBC 6.70 RBC 5.01 Hgb 14.7 Hct 46.1 MCV 92 MCH 29 MCHC 32 RDW Coeff of [place] Plt Count 289 Neut % (Auto) Lymph % (Auto) [place] % (Auto) Eos % (Auto) Baso % (Auto) Neut # (Auto) Lymph # (Auto) [place] # (Auto) Eos # (Auto) Baso # (Auto) Abs Immat Gran (auto) Imm/Tot Granulo (auto) Sodium 133 L Potassium 4.4 Chloride 108 Carbon Dioxide 13 L Anion Gap 12 BUN 50 H Creatinine 2.6 H 1.8 H Estimated Creat Clear 21.22 30.66 Estimated GFR 21 32 Glucose 87 Lactate Calcium 8.8 Phosphorus 7.9 H* 5.7 H Magnesium 2.2 Urine Color Urine Appearance Urine pH Ur Specific [place] Urine Protein Urine Glucose (UA) Urine Ketones Urine Blood Urine Nitrite Urine Bilirubin Urine Urobilinogen Ur Leukocyte Esterase Urine RBC Urine WBC Ur Squamous Epith Cells Urine Bacteria Stl C. diff Tox B Gene Stl C. diff [id number] Imaging CT scan of abdomen and pelvis: Attestation: I have reviewed the pertinent imaging results. Radiologist's impression: IMPRESSION: Small-bowel obstruction with transition point in the lower pelvis adjacent to chain suture and surgical clips from prior total colectomy. Partial right nephrectomy. Cholelithiasis without evidence of cholecystitis.
--- NOTE | 2023-07-27 19:54 | PC.NURSE ---
shift note: vss stable. pt colostomy output 06-1400 850cc. colostomy returns appeared to be mostly liquid with small amount of sediment on bottom. BS hyperactive. pt denies pain. pt tolerating soft diet. IV patent
[2023-07-27] MEDS: ACETAMINOPHEN 325 MG TABLET 1000 MG PO (21:26)
[2023-07-27] MEDS: GABAPENTIN 300 MG CAPSULE PO (21:28)
[2023-07-27] MEDS: ENOXAPARIN 40 MG/0.4 ML INJ SUBCUT (21:28)
[2023-07-28] MEDS: 0.9 % SODIUM CHLORIDE 1000 ml 1,000 ML 125 ML IV (00:16)
[2023-07-28 05:00] VITALS: BP 109/71; PULSE 62; RESP 14; TEMP 36.7; O2SAT 96
[2023-07-28] MEDS: LEVOTHYROXINE 75 MCG TABLET PO (05:05)
[2023-07-28 05:23] LABS: Hematocrit 38.9 % (33.0-51.0); Hemoglobin* 12.5 gm/dL (12.0-16.0); Mean Corpuscular HGB Conc 32 gm/dL (32-36); Mean Corpuscular Hemoglobin 30 pg (26-34); Mean Corpuscular Volume 92 fL (80-100); Platelet Count* 225 K/uL (140-440); Red Blood Count 4.21 m/uL (4.00-5.20); White Blood Count* 4.19 K/uL (4.50-11.00)
[2023-07-28 05:30] LABS: Slide Review Reflex No
[2023-07-28 05:43] LABS: Chloride* 115 mmol/L (96-114); Sodium* 138 mmol/L (135-149)
[2023-07-28 05:46] LABS: Anion Gap 7 mEq/L (7-15); Blood Urea Nitrogen* 28 mg/dL (7-30); Carbon Dioxide* 16 mmol/L (20-32); Est. Creatinine Clearance* 55.18; Estimated Glomerular Filt Rate 65 ml/min; Glucose* 73 mg/dL (60-115)
[2023-07-28 05:47] LABS: Calcium* 8.1 mg/dL (8.4-10.6)
[2023-07-28 07:00] VITALS: PULSE 61; RESP 16
--- NOTE | 2023-07-28 07:49 | PC.NURSE ---
Pt alert and oriented x3. afebrile. Reports pain 4/10 dully achy in back, managed with PRN medication. Pt denies SOB, chest pain, and N/V. Pt is up ad tesha in room. Pt's colostomy is patent and draining. Pt slept throughout most of night.
[2023-07-28 07:59] VITALS: BP 125/75; PULSE 61; RESP 16; TEMP 36.9; O2SAT 96
--- NOTE | 2023-07-28 09:36 | PM.DS1 ---
DS: Providers Provider Date Seen: 07/28/23 Date of admission: 07/27/23 16:56 Primary care physician: Taylor Pal MD Admitting Clinician: Tressa Vargas MD Attending Physician on discharge: Wandy Skaggs MD Date of Discharge: 07/28/23 DS: Diagnosis Discharge Diagnosis (1) Diarrhea: Status: Acute Problem details: -high output watery diarrhea ileostomy that began 48 hours prior to admission (07/24) -following exposure to family members with same symptoms. Suspected to be viral in nature -afebrile, no leukocytosis, lactate 1.0 -Cdif negative, stool cultures pending on discharge -clear liquid diet on admission, advanced during stay -h/o SBO with no evidence (2) Acute dehydration: Status: Acute Problem details: -in setting of acute diarrhea -BUN 54, CO2 11, sodium 131, hemoglobin 16.3 -continue IVF hydration, monitoring labs - all labs are improving including creatinine, BUN, sodium, hemoglobin (3) ISHAN (acute kidney injury): Status: Acute Problem details: - creatinine 3.3 on admission, 1.0 on discharge (prerenal in nature 2/2 acute dehydration) - improved with IVF rehydration - Renal US demonstrated no hydronephrosis or other abnormalities (4) Hyponatremia: Status: Acute Problem details: -sodium 131, in setting of profuse watery diarrhea, volume loss -improved after IVF rehydration and reintroduction of po intake -sodium 138 on d/c (5) Acute hypotension: Status: Acute Problem details: -in setting of profuse diarrhea, volume loss -Valsartan held during stay -improved upon discharge (6) Crohn's disease, small and large intestine: Status: Chronic Problem details: -has been under control, avoiding trigger foods. Not currently on any medications -followed by [facility] (7) Hx of ileostomy: Status: Acute Problem details: -2006, following failure of J Pouch 2002, [facility] (8) Hypothyroidism: Status: Chronic Problem details: -continued levothyroxine during stay DS: Summary Hospital Course Hospital Course: Valeria was admitted to the hospital on 07/26 for acute dehydration, hypotension, and ISHAN in the setting of gastroenteritis. She was having significant ileostomy output, felt weak upon admission. Symptoms improved with IVF rehydration, and she was close to baseline and ready for d/c home on 07/28/23. Multiple family members had similar symptoms, this was presumed to be a viral GE. C diff negative, stool studies pending on discharge. Notable comorbidities with details noted above. Status at Discharge Functional status at discharge: independent ambulation Overall status at discharge: patient is progressing back to baseline Time Spent with Patient Time attestation: Total time spent providing and/or coordinating discharge services: Time spent: Less than 30 minutes Exam Narrative: Exam Narrative: GEN: Alert and oriented, nontoxic in appearance HEENT: EOMIs bilaterally, no scleral icterus, moist mucous membranes CV: RRR, soft systolic murmur without concerning features R: LCTA bilaterally without concerning wheezing Ab: Soft, bowel sounds throughout Ext: wwp, no concerning edema Skin: No concerning skin lesions or rashes on exposed skin Neuro: Nonfocal Psych: Appropriate Const: Vital Signs, click to edit/add: Vital Signs - 24 hr 07/27/23 11:00 07/27/23 15:00 07/27/23 15:00 Temperature 97.8 F 97.8 F Pulse Rate Pulse Rate [Right Pulse Oximeter] 68 68 68 Respiratory Rate 18 16 16 Blood Pressure [Ri ght Arm] 111/66 122/62 Pulse Oximetry 93 96 Oxygen Delivery Me thod Room Air Room Air 07/27/23 15:00 07/27/23 20:15 07/27/23 22:30 Temperature 98.6 F Pulse Rate 65 66 Pulse Rate [Right Pulse Oximeter] 74 Respiratory Rate 16 Blood Pressure [Ri ght Arm] 119/69 Pulse Oximetry 97 Oxygen Delivery Me thod Room Air 07/27/23 22:30 07/27/23 22:30 07/28/23 05:00 Temperature 98.8 F 98.1 F Pulse Rate Pulse Rate [Right Pulse Oximeter] 70 62 Respiratory Rate 16 16 14 Blood Pressure [Ri ght Arm] 120/75 109/71 Pulse Oximetry 96 96 Oxygen Delivery Me thod Room Air Room Air 07/28/23 07:59 Temperature 98.4 F Pulse Rate Pulse Rate [Right Pulse Oximeter] 61 Respiratory Rate 16 Blood Pressure [Ri ght Arm] 125/75 Pulse Oximetry 96 Oxygen Delivery Me thod Room Air DS: Data Data Completed and Pending Labs on day of discharge: Labs from last 24 hours 07/28/23 04:39 WBC 4.19 L RBC 4.21 Hgb 12.5 Hct 38.9 MCV 92 MCH 30 MCHC 32 Plt Count 225 Sodium 138 Potassium 4.0 Chloride 115 H Carbon Dioxide 16 L Anion Gap 7 BUN 28 Creatinine 1.0 Estimated Creat Clear 55.18 Estimated GFR 65 Glucose 73 Calcium 8.1 L Preliminary micro results at discharge 07/26/23 Unknown Urine Culture - Preliminary Urine,Clean Catch <10,000 COL/ML GRAM POSITIVE ANNELIESE Discharge Plan Discharge Disposition: Home, Self-Care Date of Admission: 07/27/23 16:56 Attending Provider on Discharge: Wandy Skaggs Primary Care Provider: Taylor Pal Condition: Improved Anticipated Discharge Date/Time: 07/28/23 13:00 Discharge Medications: New ondansetron 4 mg tablet,disintegrating 4 mg PO Q8H PRN (Reason: nausea and vomiting) Qty: 14 0RF Continued levothyroxine 75 mcg tablet 75 mcg PO DAILY Patient Comments: TAKE 1 TABLET BY MOUTH ONCE DAILY. fluticasone propionate 50 mcg/actuation spray,suspension 2 spray INTRANASAL DAILY PRN Patient Comments: INHALE 2 SPRAYS INTO AFFECTED NOSTRIL(S) ONCE DAILY. gabapentin 300 mg capsule 300 mg PO HS hydroxyzine HCl 25 mg tablet 25 mg PO Q6H PRN (Reason: itch) Patient Comments: MOSTLY FOR SLEEP valsartan 40 mg tablet 40 mg PO HS cholecalciferol (vitamin D3) 25 mcg (1,000 unit) capsule 25 mcg PO DAILY cyanocobalamin (vitamin B-12) 1,000 mcg tablet 1,000 mcg PO DAILY multivitamin Tablet 1 tab PO DAILY melatonin 3 mg tablet 3 mg PO HS PRN Discharge Orders: Discharge Order (Routine); Ordered 07/28/23 Ordered By: Wandy Skaggs Patient Education: Ondansetron (By mouth), Dehydration (DC), Acute Kidney Injury (DC) Additional Instructions: [place] diet, advance as tolerated. Zofran as needed for symptoms. Let us know if you have any new or worsening symptoms. Activity Level: Activity as Tolerated Diet Detail: advance as tolerated - low fiber Follow Up Appointments: Taylor Pal MD [Primary Care Provider] - 08/07/23 12:45 pm ([facility] for follow-up.) Forms: [employer] Instructions
--- NOTE | 2023-07-28 14:29 | PC.NURSE ---
shift note: vss stable. IV dc'd intact. Reviewed dc instructions. copies sent with pt. Belongings sent with pt.
[2023-07-29 22:26] LABS: Adenovirus PCR Not Detected; Astrovirus PCR Not Detected; Campylobacter PCR Not Detected; Cryptosporidium PCR Not Detected; Cyclospora cayetanensis PCR Not Detected; Entamoeba histolytica PCR Not Detected; Enteroaggregative E coli PCR Not Detected; Enteropathogenic E coli PCR Not Detected; Enterotoxigenic E coli PCR Not Detected; Giardia lamblia PCR Not Detected; Norovirus Gi/GII PCR Not Detected; Plesiomonas shig PCR Not Detected; Rotavirus A PCR Not Detected; Salmonella PCR Not Detected; Sapovirus PCR Detected; Shiga toxin E coli PCR Not Detected; Shigella/Enteroinvasive E coli Not Detected; Vibrio PCR Not Detected; Vibrio cholerae PCR Not Detected; Yersinia enterocolitica PCR Not Detected
== END 2023-07-28 12:00 | disposition home or self-care (01) | DRG 249 ==
LOC: ED 16:46 → MEDSURG 17:10
PROVIDERS: Physician Assistant; Admitting Provider Family Medicine; Emergency Provider Emergency Medicine; PCP Family Medicine; Visit Provider Family Medicine
DX: R19.7 Diarrhea, unspecified (principal); E86.0 Dehydration; I95.9 Hypotension, unspecified; N17.9 Acute kidney failure, unspecified; Z98.890 Other specified postprocedural states; E03.9 Hypothyroidism, unspecified; K50.80 Crohn's disease of both small and large intestine without complications; I10 Essential (primary) hypertension
CPT/HCPCS: 36415; 76775; 80048; 81001; 82565; 83605; 83735; 84100; 85025; 85027; 87086; 87493; 87505; 99284; 99285; G0378; A9270; J1650; J2405; J7030

== ENCOUNTER 2024-07-17 09:15 | Outpatient (RCR) | payer BC, SELFPAY | END 2024-10-15 15:35 | disposition home or self-care (01) | PROVIDERS: PCP Family Medicine; Visit Provider Family Medicine | DX: M25.572 Pain in left ankle and joints of left foot (principal); G89.29 Other chronic pain; M62.81 Muscle weakness (generalized); Z51.89 Encounter for other specified aftercare | CPT/HCPCS: 97110; 97140; 97161 ==